=== PATIENT | male | born 1960 | race Caucasian/White ===

== ENCOUNTER 2019-04-07 01:08 | Emergency (ER) | payer OTHER, SELFPAY ==
[2019-04-07 01:16] VITALS: BP 170/114; PULSE 82; RESP 18; TEMP 37.4; O2SAT 98; BMI 30.1
[2019-04-07 02:19] LABS: Absolute Lymphocyte Count 1.45 X10^3/uL (0.83-4.51); Absolute Neutrophil Count 5.6 X10^3/uL (2.0-7.7); Basophil# 0.09 X10^3/uL; Basophil% 1.1 % (0-1); Eosinophil# 0.17 X10^3/uL; Eosinophils% 2.1 % (0-5); Hemoglobin 14.6 g/dL (13.0-16.5); Lymphocyte # 1.45 X10^3/ul (4.0); Lymphocyte % 18.3 % (19-41); Mean Corp Hgb Conc 33.2 g/dL (32-36); Mean Corpuscular Volume 87.3 fL (80-94); Mean Platelet Vol. 9.5 fl (6.2-12.0); Monocyte# 0.58 X10^3/uL; Monocyte% 7.3 % (0-10); NRBC Flagged by Analyzer 0 % (0-5); Neutrophil # 5.61 X10^3/uL (2.7-7.7); Neutrophil % 70.9 % (47-70); Platelet Count 190 K/mm3 (150-450); RBC Distribution Width CV 13.2 % (11.6-14.6); RBC Distribution Width SD 41.7 fl (35.1-43.9); Red Blood Count 5.04 M/mm3 (4.6-6.2); White Blood Count 7.9 K/mm3 (4.4-11.0)
[2019-04-07 02:32] LABS: Anion Gap 8 (5-15); BUN 16 mg/dL (7-18); BUN/Creat Ratio 14.4 RATIO (10-20); Calcium,Total 8.7 mg/dL (8.5-10.1); Chloride 106 mmol/L (98-107); Creatinine, Serum 1.11 mg/dL (0.70-1.30); EST Glomerular Filtration Rate 72 mL/min (>60); Est Glom Filt Rate - Afr Amer 88 mL/min (>60); Estimated Creatinine Clearance 75.81 ml/min; Glucose 139 mg/dL (74-106); Potassium 3.3 mmol/L (3.5-5.1); Sodium Level 144 mmol/L (136-145)
[2019-04-07 02:38] LABS: Amphetamine Urine VISTA NEGATIVE (<1000 ng/mL); Barbiturate Urine VISTA NEGATIVE (< 200 ng/mL); Benzodiazepine Urine VISTA NEGATIVE (< 200 ng/mL); Cocaine Urine VISTA NEGATIVE (< 300 ng/mL); Ecstacy Urine VISTA NEGATIVE (< 500 ng/mL); Methadone Urine VISTA NEGATIVE (< 300 ng/mL); PCP Urine VISTA NEGATIVE (< 25 ng/mL); THC Urine VISTA POSITIVE (< 50 ng/mL); Vista UDS pH Range 6
--- NOTE | 2019-04-07 03:05 | ED.RN ---
CRISIS WILL BE ON THE WAY TO SEE PATIENT
--- NOTE | 2019-04-07 03:05 | NURSING ---
TALKED TO CHARLIE FROM [facility] AT [id number]
[2019-04-07 03:10] VITALS: PULSE 84; RESP 17; O2SAT 98
--- NOTE | 2019-04-07 04:16 | ED.VISSUMM ---
- ER Visit Summary Date of Service: 04/07/19 Chief Complaint: Homicidal ideation History of Present Illness: The patient is a 58 M who presents with reported homicidal ideation. He states that he had a very stressful day and was very angry. He states I said a bunch of things I should not have. Apparently he had made statements and sent texts that he was going to kill someone at the [employer] that had upset him. He made some threats of mass murder. He states that he did not mean this and did not have any intent to act but that this was said in the heat of the moment while very angry and upset. He denies suicidal ideation. Physical Examination: Afebrile initial blood pressure 170/114 vitals otherwise normal Patient is agitated it appears angry Heart regular rate and rhythm Lungs clear Abdomen soft Alert Test Results: CBC BMP unremarkable. Urine drug screen positive for cannabinoids. Alcohol negative. Emergency Department Course and Treatment: Initially the patient was agitated and refusing to change. However he then calm down and agreed to change and proceed with medical clearance. Patient was evaluated by crisis who state that he is calm and cooperative currently. He currently denies any homicidal or suicidal ideations. They do not feel he meets criteria for involuntary hospitalization. The patient will follow up with his therapist and crisis also will contact the patient tomorrow to see how he is doing but we feel that he can be safely discharged at this time. Treatment Plan: [] Disposition: Discharge Impression: Anger outburst This note was generated with [employer] dictation software. It may contain incorrect words, spelling, and punctuation that were not noted in review of the chart prior to signing ED Disposition - Plan for ED Patient: Referrals: Iam Cleaning PA [Primary Care Provider] -
--- NOTE | 2019-04-07 04:19 | ED.DEP ---
ED Disposition - Plan for ED Patient: Referrals: Iam Cleaning PA [Primary Care Provider] - Additional Instructions: Follow-up with your therapist and crisis. Return for new or worsening symptoms or if you have thoughts of harming yourself or anyone else.
[2019-04-07 04:30] VITALS: RESP 16
== END 2019-04-07 04:31 | disposition home or self-care (01) ==
PROVIDERS: Emergency Provider Emergency Medicine; Family Provider Physician Assistant; PCP Physician Assistant
DX: R45.4 Irritability and anger (principal); R45.850 Homicidal ideations; R19.7 Diarrhea, unspecified; E11.9 Type 2 diabetes mellitus without complications; I10 Essential (primary) hypertension; E78.00 Pure hypercholesterolemia, unspecified; Z79.84 Long term (current) use of oral hypoglycemic drugs; Z79.899 Other long term (current) drug therapy
CPT/HCPCS: 80048; 80307; 80320; 85025; 99282; G0480

== ENCOUNTER → 2021-08-24 11:11 | Outpatient (CLI) | payer BC, OTHER, SELFPAY | PROVIDERS: PCP Physician Assistant; Visit Provider Physician Assistant | DX: Z11.52 Encounter for screening for COVID-19 (principal) | CPT/HCPCS: 87635; U0005; U0003 ==